=== PATIENT | male | born 1970 | race Caucasian/White ===

== ENCOUNTER 2017-02-10 14:19 | Emergency (ER) | payer BC ==
[2017-02-10 14:27] VITALS: BP 111/68
[2017-02-10] MEDS ORDERED: Tetan/Diph/Pertus SYR(Tdap)* 0.5 ML SYR(BOOSTRIX) use SYR IM ONE (14:42)
--- NOTE | 2017-02-10 14:45 | UC ---
Head Injury HPI - History Of Current Complaint Chief Complaint: UCLaceration Stated Complaint: HEAD LACERATION Time Seen by Provider: 02/10/17 14:40 Hx Obtained From: Patient Mechanism Of Injury: PVC pipe struck his head Onset/Duration: Sudden Onset, Lasting Hours, Still Present Severity Currently: Moderate Severity Initially: Moderate Pain Intensity: 2 Pain Scale Used: 0-10 Numeric Character: Sharp Aggravating Factor(s): Nothing Alleviating Factor(s): Nothing Associated Signs And Symptoms: Positive: Negative. Negative: LOC (Time In Secs. /Mins/Hrs), Confusion, Memory Loss, Seizure, Epistaxis, Dental Malocclusion, Neck Pain, Nausea, Vomiting - Risk Factors SDH Risk Factor: Male, Recent Trauma - Allergies/Home Medications Allergies/Adverse Reactions: Allergies Allergy/AdvReac Type Severity Reaction Status Date / Time Penicillins Allergy Unknown See Comment Verified 09/18/16 10:23 Home Medications: Home Medications NK [No Home Medications Reported] 02/10/17 [History Confirmed 02/10/17] PMH/Surg Hx/FS Hx/Imm Hx Previously Healthy: Yes Endocrine History Of: Denies: Diabetes Cardiovascular History Of: Denies: Cardiac Disorders Respiratory History Of: Denies: Asthma - Surgical History Surgical History: None - Family History Known Family History: Negative: Hypertension, Diabetes - Social History Occupation: Employed Full-time Alcohol Use: Weekly Alcohol Amount: 2 x weekly Substance Use Type: None Smoking Status (MU): Never Smoked Tobacco - Immunization History Most Recent Influenza Vaccination: not this season Most Recent Tetanus Shot: within last 10 years Review of Systems Constitutional: Negative Skin: Other - laceration right forehead Eyes: Negative ENT: Negative Respiratory: Negative Cardiovascular: Negative Gastrointestinal: Negative Genitourinary: Negative Motor: Negative Neurovascular: Negative Musculoskeletal: Negative Neurological: Negative Psychological: Negative All Other Systems Reviewed And Are Negative: Yes Physical Exam Triage Information Reviewed: Yes Appearance: Well-Appearing, Well-Nourished, Pain Distress Vital Signs: Initial Vital Signs Temp 97.5 F 02/10/17 14:22 Pulse 65 02/10/17 14:22 Resp 16 02/10/17 14:22 BP 111/68 02/10/17 14:22 Pulse Ox 97 02/10/17 14:22 Vital Signs Reviewed: Yes Eyes: Positive: Conjunctiva Clear ENT: Positive: Normal ENT inspection Neck: Positive: Supple, Nontender Respiratory: Positive: No respiratory distress Cardiovascular: Positive: RRR, Pulses Normal, Brisk Capillary Refill Musculoskeletal: Positive: Strength Intact, ROM Intact Neurological: Positive: Alert, Muscle Tone Normal Psychological Exam: Normal Skin: Positive: Other - 3cm flap laceration right forehead Procedures - Laceration/Wound Repair 1 Location: face Description: Irregular - flap Anesthesia: Local - no anesthesia needed or given Length, Depth and Shape: 3 cm x 2cm x 1mm irregular flap lacearion right forehead, Betadine Prep?: Yes Irrigated w/ Saline (ccs): 50 Laceration/Wound Explored: clean, no foreign body removed Closure: Skin Adhesive Debridement: none Layer Closure?: No Sterile Dressing Applied?: Yes Head Injury Course/Dx - Differential Dx/Diagnosis Differential Diagnosis/HQI/PQRI: Concussion Without LOC, Contusion, Other - laceration Provider Diagnoses: forehead laceration with skin adhesive repair Discharge - Discharge Plan Condition: Stable Disposition: HOME Patient Education Materials: Diphtheria/Acellular Pertussis/Tetanus Vaccine ( By injection), Head Injury (ED), Skin Adhesive Care (ED) Referrals: Vincent Koenig MD [Primary Care Provider] - Additional Instructions: Your tetanus shot was updated. This shot also updates you for pertussis coverage. This shot is good for 10 years. The glue should wear off in a few days. You may use steristrips afterwards if you feel that the wound still needs closure. Return to urgent care if you have any new or worsening symptoms.
== END 2017-02-10 15:20 | disposition home or self-care (01) ==
LOC: UCCORT 14:19
DX: S01.81XA Laceration without foreign body of other part of head, initial encounter (principal); W22.8XXA Striking against or struck by other objects, initial encounter; Y93.9 Activity, unspecified; Y92.9 Unspecified place or not applicable; Z23 Encounter for immunization; Z88.0 Allergy status to penicillin
CPT/HCPCS: 12013; 90471; 90715; 99211; G0463